=== PATIENT | female | born 1930 | race Caucasian/White ===

== ENCOUNTER 2016-09-09 07:40 | Emergency (ER) | payer MEDICARE ==
[~2016-09-09] VITALS: Ht 161.3 cm; Wt 50.5 kg
[2016-09-09 07:47] VITALS: BP 164/72; PULSE 76; RESP 16; O2SAT 98
--- NOTE | 2016-09-09 07:52 | ED.REPORT ---
HPI-Extremity Problem Upper Date of Service Sep 09, 2016 ED Provider: The patient is an 85 year old female who presents to the emergency department complaining of a left wrist injury that occurred prior to arrival. She states that she fell backwards and caught herself with her left hand, injuring her wrist. Her pain is exacerbated with range of motion. She denies numbness or weakness. She did not hit her head or lose consciousness. She denies any other injuries or trauma. Nursing Notes Stated Complaint: FALL/LEFT WRIST INJURY Chief Complaint: Extremity Trauma Nursing Notes Reviewed: Yes Allergies: Coded Allergies: No Known Allergies (Unverified , 09/09/16) Scheduled PRN Tramadol (Tramadol) 50 Mg Tablet 50 MG PO Q4H PRN PRN For Pain Miscellaneous Medications Levothyroxine (Levothyroxine) 50 Mcg Tablet General Time Seen by MD: 07:53 Chief Complaint Wrist injury left Hx Obtained From: Patient Arrived By: Walk-in Onset Occurred: 1 - 4 hours ago Symptom Duration: Since onset Location: : Wrist left Quality: Painful Severity: Current: Moderate Severity: Maximum: Severe Exacerbated by: Range of motion Relieved by: Immobilization Recent Healthcare: No recent doctor visit, No recent hospitalization Similar Sx Previous: No Past Medical History Past Medical History Neuropathy Thyroid disease Family History Noncontributory Smoking History Never Smoker Social History Alcohol Use: Denies alcohol use Drug Use: Denies drug use Other Social History: Good social support, , Local resident Ambulatory Status Independent Review of Systems Musculoskeletal: Reports: Extremity pain, Joint pain Neurologic: Denies: Change LOC, Focal weakness, Headache, Numbness Complete sys rev & neg: except as marked. Physical Exam Initial Vital Signs Vital Signs (First) Date Time Temp Pulse Resp B/P Pulse Ox O2 Delivery O2 Flow Rate FiO2 09/09/16 07:47 36.8 76 16 164/72 98 Room Air Initial VS: Reviewed Head / Eyes: Atraumatic, Normocephalic, PERRL ENT: Mucous membranes moist, Conjunctiva normal, No scleral icterus Neck: Supple, Non-tender, Full range of motion Respiratory: No respiratory distress Abdomen / GI: No distention Lower Extremities: Vascular intact, Neuro intact, No swelling, No tenderness Skin: Warm, Dry, No cyanosis Neurologic: Alert, Oriented, Nonfocal Psychiatric: Mood/affect normal, Behavior normal, Normal thought content Wrist / Hand: Neurologic intact, Vascular intact She has swelling, tenderness, and ecchymosis to her left wrist. Neurovascular intact. Interpretation & Diagnostics X-Ray Interpretation Xray Interpretation: IMPRESSION: Fracture of the ulnar dorsal aspect of the radius involving articular surface in the slight displacement of the fragment suspected in the lateral view proximally. Scapholunate ligament is injured but age is indeterminate. Chondrocalcinosis. Dictated by: Victor Hugo Donovan M.D. on 09/09/2016 at 8:38 X-Ray Ordered: Wrist left Interpretation / Wet Read by: Interpret - Radiologist Procedures Splint Application - Fx Mgt Time: 08:50 Procedure Performed by: Block Paver Precise Anatomic Location: Left wrist Type of Immobilization: Sugar tong Definitive Fracture Care: Pain control, Splint, Follow up > 4 days Post-Procedure / Complications: Cap refill normal, Post splint vascular nl, Post splint neuro nl, Condition improved, Tolerated procedure well, Patient stable Splint Post-Application Eval Extremity Condition: Cap refill < 2 sec, Distal sensation intact, Distal motor Intact, No compartment syndrome Re-Eval/Medical Decision Med Decision/Clinical Course Patient has distal radius and ulna fracture the patient is splinted in a sugar tong splint given a sling and tramadol for pain management. She will follow up with orthopedics. Return precautions given. Source of Hx: Old records Re-Evaluation/Progress : Time of Eval: 08:50 Re-Evaluation/Progress Note: Rechecked the patient. Discussed x-ray results, diagnosis, and plan for discharge. All questions were addressed. Counseled Regarding: Diagnosis, Need for follow-up, When/why to return to ED Discharge & Departure Impression: Primary Impression: Fracture of distal end of left radius and ulna Encounter type: initial encounter Fracture type: closed Qualified Code: S52.502A - Unspecified fracture of the lower end of left radius, initial encounter for closed fracture Disposition: Home Discharge Condition All VS Reviewed: Yes Condition: Stable Patient Instructions: Splint Care (ED) Additional Instructions: Thank you for entrusting us with your care today. The x-ray shows evidence of a radial and ulnar fracture. You will need to followup with an orthopedics pediatric physician in the next few days. We have given you a referral to Dr. Lees. You can call their office tomorrow to schedule an appointment. Use the splint until you are evaluated by the orthopedist. Use Tylenol as needed for pain and Tramadol as needed for severe pain. Please return to the emergency department if you develop increased pain, weakness, numbness, or any other new or concerning symptoms. Referrals: Majo Barajas MD (PCP) Cruz Lees PA-C Attestation Portions of this note were transcribed by Lissette Schuster. I, Dr. Patel personally performed the history, physical exam and medical decision-making; I reviewed and confirmed the accuracy of the information in the transcribed note. Signed by: Emiliano Williamson, 09/09/2016 and 0900. copies to: Majo Barajas MD, Timothy S DO Sep 09, 2016 07:52 Lissette Schuster Sep 09, 2016 07:53
[2016-09-09] MEDS ORDERED: LEVO100T6 PO (07:59)
--- NOTE | 2016-09-09 08:40 | DRSVH ---
PROCEDURE: X-RAY LEFT WRIST COMPLETE, MINIMUM THREE VIEWS ([id number]) INDICATIONS: swollen/deformed/painful fell yesterday TECHNIQUE: 4 views of the wrist were acquired. COMPARISON: None. FINDINGS: Bones: There is an acute fracture of the radius distally involving the diametaphysis and extending in to the radial ulnar joint. This appears to involve the ulnar half of the dorsal aspect of the radius. There is widening of the scapholunate joint consistent with tearing of the ligament. No suspicious b rm lesions. Scaphoid view: No fracture of the navicular is identified. Soft tissues: Soft tissue calcifications would indicate chondrocalcinosis.. IMPRESSION: Fracture of the ulnar dorsal aspect of the radius involving articular surface in the slig ht displacement of the fragment suspected in the lateral view proximally. Scapholunate ligament is injured but age is indeterminate. Chondrocalcinosis. Dictated by: Victor Hugo Donovan M.D. on 09/09/2016 at 8:38 Approved by: Victor Hugo Donovan M.D. on 09/09/2016 at 8:38
[2016-09-09] MEDS ORDERED: TRAM50TA2 PO (09:20)
[2016-09-09] MEDS ORDERED: LEVO50TA6 (09:27)
== END 2016-09-09 10:10 | disposition home or self-care (01) ==
LOC: SED 07:40
DX: S52.592A Other fractures of lower end of left radius, initial encounter for closed fracture (principal); S52.692A Other fracture of lower end of left ulna, initial encounter for closed fracture; W19.XXXA Unspecified fall, initial encounter; Y92.9 Unspecified place or not applicable; Y93.89 Activity, other specified; Y99.8 Other external cause status; E07.9 Disorder of thyroid, unspecified